=== PATIENT | female | born 1970 | race Caucasian/White ===

== ENCOUNTER → 2021-04-07 14:18 | Outpatient (CLI) | payer OTHER, SELFPAY ==
--- NOTE | ~2021-04-07 | US_ITS ---
EXAMINATION: US thyroid EXAM DATE: 04/07/2021 14:37 INDICATION: Goiter . TECHNIQUE: Multiple grayscale and Doppler images of the thyroid were obtained (by a technologist who performed the scan) and subsequently reviewed. Individual nodules and recommendations may be reporte d in accordance with TI-RADS system as designated by the 2017 ACR White Paper TI-RADS committee. The re is no prior study for comparison. FINDINGS: The right thyroid lobe measures 4.2 x 1.5 x 1.3 cm, the left measuring 3.3 x 1.0 x 1.1 cm. Mildly heterogeneous thyroid echogenicity with expected amount of vascularity. Dimensions are within normal size limits. No focal nodule is identified. IMPRESSION: 1. Unremarkable thyroid ultrasound exam. Reviewed, dictated and finalized at location B. [employer]
== END ==
PROVIDERS: PCP Internal Medicine Geriatric Medicine; Visit Provider Internal Medicine Endocrinology, Diabetes & Metabolism
DX: E04.9 Nontoxic goiter, unspecified (principal)
CPT/HCPCS: 76536

== ENCOUNTER → 2021-09-29 07:37 | Outpatient (CLI) | payer OTHER, SELFPAY ==
--- NOTE | ~2021-09-29 | XR_ITS ---
XR abdomen/kub 1V DATE: 09/29/2021 08:01 INDICATION: Upper abdominal pain TECHNIQUE: Supine AP views of the abdomen COMPARISON: 09/29/2021 right upper quadrant abdominal ultrasound FINDINGS: The psoas shadows are intact. No visceromegaly is evident. There is a prominent amount of fecal material in the colon but no evidence of bowel obstruction. No s ignificant abnormal calcification is noted. The lung bases appear clear. Heart size appears normal. Included skeletal structures are unremarkable. IMPRESSION: Nonspecific abdomen Reviewed, dictated and finalized at [facility]. Reviewed, dictated and finalized at location B. IMPRESSION: Nonspecific abdomen
--- NOTE | ~2021-09-29 | US_ITS ---
US right upper quadrant INDICATION: Upper abdominal pain PROCEDURE: Realtime right upper abdominal ultrasound. COMPARISON: No prior studies for comparison. FINDINGS: The pancreas is normal without focal mass or pancreatic ductal dilation. There is increase d liver echotexture, consistent with fatty infiltration. There is a cyst of the left hepatic lobe cherelle suring 1.7 x 1.4 x 0.8 cm. There is normal directional flow in the portal vein. The gallbladder is normal without stones, gallbladder wall thickening or pericholecystic fluid. Comm on bile duct measures 4 mm. No sonographic Rosado's sign. IMPRESSION: 1: Hepatic steatosis. Reviewed, dictated and finalized at location A. IMPRESSION: 1: Hepatic steatosis.
== END ==
PROVIDERS: PCP Internal Medicine Geriatric Medicine; Visit Provider Internal Medicine Geriatric Medicine
DX: R10.10 Upper abdominal pain, unspecified (principal); K76.0 Fatty (change of) liver, not elsewhere classified
CPT/HCPCS: 74018; 76705

== ENCOUNTER 2021-11-14 00:21 | Day surgery (SDC) | payer OTHER, SELFPAY ==
[2021-10-27 16:15] VITALS: BMI 41.3
--- NOTE | 2021-11-11 14:15 | PM.HPGS ---
History of Present Illness History of Present Illness Consent: Risks, benefits, and alternatives have been discussed and questions answered. Patient agrees to proceed with procedure. Chief complaint: neoplasm screening Narrative: Odalis Sky is a 51 year old female Referred for colon cancer screening. Review of Systems Review of Systems: All systems reviewed & are unremarkable except as noted in HPI and below PMFSH Social History Social History Smoking status: Never smoker Alcohol intake: never Substance use: never Substance use type: does not use Living arrangements: with family Spiritual care concerns: No Meds Home Medications and Allergies Home Medications Medication Instructions Recorded Confirmed Type alprazolam 0.25 mg tablet 0.25 mg PO PRN PRN Anxiety 10/27/21 11/14/21 History metformin 500 mg tablet,extended 1,000 mg PO HS 10/27/21 11/14/21 History release 24 hr propranolol 40 mg tablet 40 mg PO BID 10/27/21 11/14/21 History semaglutide 14 mg tablet (Rybelsus) 14 mg PO HS 10/27/21 11/14/21 History spironolactone 100 mg tablet 100 mg PO DAILY 10/27/21 11/14/21 History sumatriptan succinate 100 mg tablet 100 mg PO PRN PRN migaines 10/27/21 11/14/21 History topiramate 50 mg tablet 50 mg PO DAILY 10/27/21 11/14/21 History Allergies Allergy/AdvReac Type Severity Reaction Status Date / Time No Known Allergies Allergy Unknown Verified 11/14/21 08:16 Exam Resp: Auscultation: clear to auscultation bilaterally Cardio: Rate: regular rate Rhythm: regular rhythm GI: GI Palp: Yes Soft to palpation and No Tenderness to palpation present (GI) Assessment and Plan Assessment and plan (1) Colon cancer screening: Code(s): Z12.11 - Encounter for screening for malignant neoplasm of colon Status: Acute Assessment and Plan: Colonoscopy with possible biopsy or polypectomy or cautery or injection of substances.
[2021-11-14 08:17] VITALS: BP 131/112; PULSE 112; RESP 18; TEMP 36.1; O2SAT 98; BMI 40.5
[2021-11-14] MEDS: LACTATED RINGERS 1,000 ML 150 ML IV CONT (08:21)
--- NOTE | 2021-11-14 08:49 | P.PNAN_ITS ---
Anes - Initial Pre Proc Eval Procedure: Operation Date: 11/14/21 09:00 Proposed Procedures p Screening Colonoscopy - Harjit Painter MD Date/Time: 11/14/21 08:49 Surgeon: Harjit Painter MD Pre Op Diagnosis: neoplasm screening Patient Data Age: 51 Gender: F Height: 1.65 m Weight: 110.5 kg Last Vital Signs Temp 97 F L 11/14/21 08:17 Pulse 112 H 11/14/21 08:17 Resp 18 11/14/21 08:17 BP 131/112 H 11/14/21 08:17 Pulse Ox 98 11/14/21 08:17 O2 Del Method Room Air 11/14/21 08:17 Allergies Allergy/AdvReac Type Severity Reaction Status Date / Time No Known Allergies Allergy Unknown Verified 11/14/21 08:16 Home Medications Medication Instructions Recorded Confirmed Type alprazolam 0.25 mg tablet 0.25 mg PO PRN PRN Anxiety 10/27/21 11/14/21 History metformin 500 mg tablet,extended 1,000 mg PO HS 10/27/21 11/14/21 History release 24 hr propranolol 40 mg tablet 40 mg PO BID 10/27/21 11/14/21 History semaglutide 14 mg tablet (Rybelsus) 14 mg PO HS 10/27/21 11/14/21 History spironolactone 100 mg tablet 100 mg PO DAILY 10/27/21 11/14/21 History sumatriptan succinate 100 mg tablet 100 mg PO PRN PRN migaines 10/27/21 11/14/21 History topiramate 50 mg tablet 50 mg PO DAILY 10/27/21 11/14/21 History Patient hx anesthesia problems: none Family hx anesthesia problems: none Results Review: All pre-operative results and documents have been reviewed as part of the pre- operative evaluation. [facility] Social History Social History Smoking status: Never smoker Alcohol intake: never Substance use: never Substance use type: does not use Living arrangements: with family Spiritual care concerns: No Anes - Eval Final PreProcedure Day of Procedure 11/14/21 08:49 Patient weight: morbidly obese Heart: regular rate and rhythm Lungs: clear to auscultation Airway: Mallampati scale class II Neurological: alert and oriented Last oral intake: >/= 8 hours ASA classification: III Emergent: no Anesthetic plan: proceed Anesthesia type and monitoring: general GIVS and standard monitoring Results Review: All pre-operative results and documents have been reviewed as part of the pre- operative evaluation. Informed Consent: The patient's anesthetic plan and its attendant risks and benefits were discussed with the patient/family/POA. Questions were solicited and answers provided to the satisfaction of the patient/family/POA.
[2021-11-14 09:13] VITALS: BP 126/59; PULSE 94; RESP 29; O2SAT 96
[2021-11-14 09:23] VITALS: BP 128/72; PULSE 86; RESP 21; O2SAT 96
[2021-11-14 09:33] VITALS: BP 142/73; PULSE 90; RESP 22; O2SAT 97
== END 2021-11-14 09:35 | disposition home or self-care (01) ==
PROVIDERS: PCP Internal Medicine Geriatric Medicine; Visit Provider Internal Medicine Gastroenterology
PROC: 0DJD8ZZ Inspection of Lower Intestinal Tract, Via Natural or Artificial Opening Endoscopic (ICD-10-PCS; CPT 45378; principal; 2021-11-14 09:00)
DX: Z12.11 Encounter for screening for malignant neoplasm of colon (principal); K57.30 Diverticulosis of large intestine without perforation or abscess without bleeding; Z79.84 Long term (current) use of oral hypoglycemic drugs; E66.9 Obesity, unspecified; Z68.41 Body mass index [BMI] 40.0-44.9, adult
CPT/HCPCS: 45378; J2704; J7120

== ENCOUNTER 2022-03-29 10:51 | Outpatient (CLI) | payer OTHER, SELFPAY ==
--- NOTE | ~2022-03-29 | MM_ITS ---
EXAMINATION: MM screening john BI w saloni HISTORY: Screening TECHNIQUE: Craniocaudal and mediolateral oblique 3-D tomosynthesis images were obtained and synthetic 2-D images were generated. CAD analysis was submitted and interpreted. COMPARISON: 09/01/2008 BREAST PARENCHYMAL COMPOSITION: The breasts are almost entirely fatty. FINDINGS: There is no evidence of suspicious mass, calcification, or architectural distortion to sugg est malignancy in either breast. There has been no suspicious interval change. IMPRESSION: 1. No mammographic evidence of malignancy. 2. Recommend routine screening mammography in one year. BI-RADS Category 1: Negative Reviewed, dictated and finalized at location A. QUALITY ASSURANCE ANALYST
== END 2022-03-29 10:52 | disposition home or self-care (01) ==
PROVIDERS: PCP Internal Medicine Geriatric Medicine; Visit Provider Nurse Practitioner
DX: Z12.31 Encounter for screening mammogram for malignant neoplasm of breast (principal)
CPT/HCPCS: 77063; 77067

== ENCOUNTER → 2022-07-26 09:07 | Outpatient (CLI) | payer OTHER, SELFPAY ==
--- NOTE | ~2022-07-26 | MR_ITS ---
MRI of the left knee Clinical history: Pain Technique: Coronal proton density and proton density-weighted images, sagittal proton-density and T2 fat-sat images, and axial proton-density fat-saturated images were acquired. Findings: Anterior and posterior cruciate ligament are intact. Medial collateral ligament and the lat eral collateral ligament complex are intact. Popliteus tendon is intact. Medial and lateral menisci are intact, without evidence of tear. Articular cartilage is well preserved throughout the knee. Bone marrow signals are unremarkable. Extensor mechanism is intact. No joint effusion or Zacarias's cyst. Impression: No significant abnormality seen. Reviewed, dictated and finalized at location M. Impression: No significant abnormality seen.
== END ==
DX: M25.562 Pain in left knee (principal); G89.29 Other chronic pain
CPT/HCPCS: 73721

== ENCOUNTER → 2023-02-03 08:43 | Outpatient (CLI) | payer BC, SELFPAY ==
--- NOTE | ~2023-02-03 | MR_ITS ---
MRI of the left lower extremity Clinical history: Pain TECHNIQUE: Axial T1-weighted and STIR images, coronal T1-weighted and STIR images, and sagittal T1-we ighted and STIR images were performed of the left calf FINDINGS: Bone marrow signals are unremarkable. No bone marrow edema, fracture, or parasellar reactio n seen. No hypointense T1 marrow signal to suggest osteomyelitis. No evidence of medial tibial stress syndrome. There is minimal edematous change in the distal, medial aspect of the medial soleus muscle belly. Leroy us which are unremarkable. Visualized tendons are intact. There is mild scattered nonspecific subcuta neous soft tissue edema, worst at the distal calf and proximal. No focal fluid collection or mass les ion identified. IMPRESSION: Mild edematous change in the distal, medial aspect of the soleus muscle belly, which could reflect lo w-grade muscle strain or nonspecific focal myositis. Nonspecific subcutaneous soft tissue edema. Reviewed, dictated and finalized at [facility]. CENTER MANAGER IMPRESSION: Mild edematous change in the distal, medial aspect of the soleus muscle belly, which could reflect low-grade muscle strain or nonspecific focal myositis. Nonspecific subcutaneous soft tissue edema.
== END ==
PROVIDERS: PCP Orthopaedic Surgery; Visit Provider Orthopaedic Surgery
DX: R22.42 Localized swelling, mass and lump, left lower limb (principal)
CPT/HCPCS: 73718